=== PATIENT | male | born 1975 | race Caucasian/White ===

== ENCOUNTER 2024-11-03 15:46 | Outpatient (CLI) | payer MEDICAID ==
[~2024-11-03] VITALS: Ht 188 cm; Wt 102.1 kg
[2024-11-03 16:30] VITALS: PULSE 72; RESP 18; O2SAT 0
[2024-11-03] MEDS: albuterol 2.5 MG/3 ML nebule NEB ONE (16:42)
[2024-11-03 16:43] VITALS: PULSE 74; RESP 18
== END 2024-11-03 23:59 | disposition home or self-care (01) ==
LOC: RT 15:46
PROVIDERS: ATTEND Physician Assistant Medical
DX: R07.89 Other chest pain (principal); R06.02 Shortness of breath
CPT/HCPCS: 94060; 94760

== ENCOUNTER 2024-11-12 15:14 | Outpatient (CLI) | payer MEDICAID ==
[~2024-11-12 15:14] MED LIST: barium sulfate 340gm for oral suspension 1 BOTTLE SUSP.RECON PO ONE
== END 2024-11-12 23:59 | disposition home or self-care (01) ==
LOC: RAD 15:14
PROVIDERS: ATTEND Physician Assistant Medical
DX: K21.9 Gastro-esophageal reflux disease without esophagitis (principal); K44.9 Diaphragmatic hernia without obstruction or gangrene; R13.10 Dysphagia, unspecified
CPT/HCPCS: 74220